=== PATIENT | male | born 2000 | race Caucasian/White ===

== ENCOUNTER 2021-12-30 18:41 | Inpatient (IN) | payer SELFPAY ==
--- NOTE | ~2021-12-30 | CT_ITS ---
EXAMINATION: CT ABDOMEN AND PELVIS WITH CONTRAST CLINICAL INFORMATION: Right abdominal pain COMPARISON: Radiograph 12/30/2021 TECHNIQUE: Multidetector volumetric images were obtained from the superior aspect of the liver through the pubic symphysis following administration 85 mL of Omnipaque 350 intravenous contrast. Sagittal and coronal reformatted images were obtained on the technologist's workstation. Oral contrast: No This CT examination was performed using dose optimization techniques as appropriate, variously including the following: *Automated exposure control *Adjustment of mA and/or kV according to patient size (this includes techniques or standardized protocols for targeted exams where dose is matched to indication/reason for exam; i.e. extremities or head) *Use of iterative reconstruction technique DLP: 381 mGy-cm FINDINGS: LUNG BASES: The visualized lung bases are unremarkable. LIVER, GALLBLADDER, AND BILIARY TREE: The liver is normal in size, shape, and attenuation. No focal hepatic lesion or biliary ductal dilatation is present. The gallbladder is unremarkable with no evidence of radiopaque gallstones, gallbladder wall thickening, or obvious pericholecystic inflammatory changes. PANCREAS: Unremarkable. SPLEEN: Unremarkable. ADRENAL GLANDS: Unremarkable. KIDNEYS AND URETERS: The kidneys are normal in size, shape, and attenuation. No hydronephrosis, hydroureter, or calculi seen. No perinephric stranding. BLADDER: Unremarkable. GASTROINTESTINAL TRACT: Normally distended stomach. Normal caliber small bowel. There is no obstruction. The appendix is abnormal. This is dilated to measure 1.7 cm. There is significant adjacent inflammation. In the region of the distal appendix there is extraluminal fluid, consistent with a perforation. No abscess formation seen at this time. The remainder of the colon appears unremarkable. ABDOMINAL WALL: No significant hernia is appreciated. LYMPH NODES: Normal. VASCULAR: Unremarkable. PELVIC VISCERA: The prostate and seminal vesicles are unremarkable. Small volume of pelvic free fluid. OSSEOUS STRUCTURES: Bilateral L5 pars defects with grade 1 anterolisthesis of L5 on S1. No acute abnormality. CT/CT abdomen pelvis w con IMPRESSION: Acute appendicitis with perforation. This critical result was discussed with Dr. Wyatt by telephone at 12/30/2021 11:04 PM and it was ascertained that the content and urgency of the report was understood at the time of direct communication. Fleischner guidelines were followed.
--- NOTE | ~2021-12-30 | XR_ITS ---
EXAMINATION: XR ABDOMEN KUB CLINICAL INDICATION: Abdomen pain. Constipation COMPARISON: None TECHNIQUE: Supine frontal view of the abdomen. FINDINGS: No suspicious calcification. No evidence of a mass or collection. There are some gas-filled loops of bowel. No significant distention. No ectopic gas. No pneumatosis or pneumoperitoneum demonstrated. Probable bone island proximal right femur. XR/XR KUB IMPRESSION: Nonobstructed gas pattern. No evidence of pneumoperitoneum. The amount of fecal residue appears within normal limits
[2021-12-30 18:59] VITALS: BP 117/73; PULSE 97; RESP 15; TEMP 37.1; O2SAT 98; BMI 23.7
[2021-12-30 19:40] LABS: MANUAL DIFF FLAG NO
[2021-12-30 19:41] LABS: Basophils Percent Auto 0.2 % (0-2); Hematocrit 44.7 % (42.0-52.0); Hemoglobin 15.3 g/dl (14.0-18.0); Imm Gran Abs Auto 0.11 X10*3/uL (0.00-0.03); Imm Gran Pct Auto 0.6 % (0.0-0.4); Lymphocytes Absolute Auto 0.6 X10*3/uL (1.2-4.9); Lymphocytes Percent Auto 3.1 % (20-40); Mean Corpuscular HGB Conc 34.2 g/dl (31.0-36.0); Mean Corpuscular Hemoglobin 30.1 pg (27.0-33.0); Mean Platelet Volume 8.9 fL (9.4-12.4); Monocytes Absolute Auto 1.2 X10*3/uL (0.1-1.2); Monocytes Percent Auto 6.1 % (2-11); Platelet Count 373 X10*3/uL (160-400); Red Blood Count 5.08 X10*6/uL (4.60-5.80); Red Cell Distribution Width 12.3 % (11.0-16.0); White Blood Count 18.9 X10*3/uL (4.8-10.8)
[2021-12-30 20:14] LABS: Alanine Aminotransferase 13 U/L (0-40); Albumin Level 4.8 g/dL (3.5-5.0); Alkaline Phosphatase 58 U/L (39-117); Anion Gap 13 (12-20); Aspartate Amino Transferase 14 U/L (5-37); Bilirubin Direct 0.5 mg/dL (0.0-0.5); Bilirubin Total 1.1 mg/dL (0.0-1.0); Blood Urea Nitrogen 12 mg/dL (9-16); Calcium 9.8 mg/dL (8.4-10.2); Carbon Dioxide 31 mmol/L (22-29); Chloride 97 mmol/L (96-108); Creatinine Clr Calc Pharmacy 109.6; Estimated Glomerular Filt Rate > 60; Glucose Random 185 mg/dL (60-115); Lipase 14 U/L (8-78); Potassium 3.9 mmol/L (3.3-5.1); Sodium 137 mmol/L (135-145); Total Protein 8.1 g/dL (6.5-8.0)
--- NOTE | 2021-12-30 21:44 | ED.ABDPAIN ---
HPI - Abdominal Pain General Chief Complaint: Abdominal Pain Stated Complaint: abdominal and groin pain Time Seen by Provider: 12/30/21 21:29 Source: patient Mode of arrival: wheelchair Limitations: no limitations History of Present Illness HPI narrative: Patient presents emergency department for evaluation of abdominal pain. He reports onset of mild abdominal pain yesterday evening, followed by multiple episodes of nausea and vomiting. He states that about 4-5 hours ago he felt his abdominal pain to become more intense and severe. Predominantly to the right lower quadrant radiating into the groin and his back. He does additionally report pain to the left side as well with his is not as severe. He reports no bowel movement over the past 2 days, thought he may have been constipated, trial of magnesium citrate as well as a laxative without any relief. He does have history of constipation. Denies fevers, chills chest pain, shortness of breath, dysuria, urinary frequency, abnormal penile discharge, testicular pain or scrotal swelling. Related Data Allergies Allergy/AdvReac Type Severity Reaction Status Date / Time sulfamethoxazole AdvReac Unknown Verified 12/30/21 19:05 [From Bactrim] trimethoprim [From Bactrim] AdvReac Unknown Verified 12/30/21 19:05 Review of Systems Review of Systems Constitutional : No Weight loss, No Fever, No Chills ENT/Mouth :? No sore throat, No Rhinorrhea Eyes: No Swelling, No Redness Cardiovascular : No Chest Pain, No SOB, No Edema Respiratory : No Cough, No Sputum, No Wheezing Gastrointestinal : Positive Nausea, Positive Vomiting, no Diarrhea, positive abdominal pain, No Hematochezia, No Melena Genitourinary : No Dysuria, No Urinary Frequency, No Hematuria, No Urgency? Musculoskeletal : No joint pain, No Myalgias, No Joint Swelling Skin : No Skin Lesions, No rash Neuro : No Weakness, No Numbness, No Dizziness, No Headache Psych : No Anxiety/Panic, No Depression Heme/Lymph: No Bruising, No Lymphadenopathy Endocrine : No Polyuria, No Polydipsia Yes all other systems are reviewed and are negative [facility] Past Medical History Attestation statement: The following information was validated with the patient. Source: old records reviewed Social History Social History Advance Directives: No Physical Exam ED Vital Signs: Vital Signs - 24 hr 12/30/21 18:59 12/30/21 23:02 12/30/21 22:00 Temperature 98.8 F 102 F H Pulse Rate 97 88 Respiratory Rate 15 16 16 Blood Pressure 117/73 132/74 Pulse Oximetry 98 97 Oxygen Delivery Method Room Air Room Air BMI result Body Mass Index 23.7 Vital signs have been reviewed as normal and appeared to be correct. Blood pressure normal.? Heart rate normal.? Respiration rate normal. Temperature normal.? Oxygen saturation normal. Appearance: Alert.?Oriented to person, place and time. No acute distress.?Normal affect. Eyes: Pupils equal, round and reactive to light.? ENT: Pharynx normal.?? Neck: Normal inspection.? Neck supple.?? CVS: Heart sounds normal. Normal heart rate and rhythm.? Pulses normal.?? Respiratory: No respiratory distress.? Lung sounds clear to auscultation bilaterally?? Abdomen: Firm, tenderness predominantly in the right lower quadrant, no rebound tenderness negative Rovsing sign, obturator sign, psoas sign. No CVA tenderness ? Skin: Skin warm and dry.? Normal skin color.? Normal skin turgor.?? Extremities: No lower extremity edema.? Neuro: Moves all extremities spontaneously. Sensation intact bilaterally. No motor deficits Ambulates with normal steady gait. Course Course Course Narrative: Patient is a 21-year-old male with a significant past medical history presenting to emergency department for evaluation of abdominal pain, predominantly right lower quadrant, episodes of nausea and vomiting. Has been able to tolerate water, but has not had anything to eat. Pain became severe for you this evening. At the time of my exam while at rest pain is currently 3/10, declines needing analgesics or antiemetics at this time. Labs reveal leukocytosis at 18.9, no anemia, CMP is overall unremarkable. Obtain CT of the abdomen to evaluate for intra-abdominal pathology Reevaluation(s) Reevaluation #1: Patient noted to be febrile 102, no tachycardia. Tylenol ordered at this time. Infection suspected at this time, CT of the abdomen reveals acute appendicitis with perforation, blood cultures and lactic acid ordered. Zosyn IV ordered. Consult placed to surgery Dr. Joseph Time: 23:09 Reevaluation #2: Discussed with patient plan of care for admission to hospital, plan for laparoscopic appendectomy in the morning with Dr. Joseph. Briefly discussed this procedure with him, patient is agreeable with plan of care. Time: 23:30 MDM - Abdominal Pain Medical Records Attestation: I reviewed the patient's medical records. Lab Data Attestation: I reviewed the patient's lab results. Result diagrams: 12/30/21 19:36 12/30/21 19:36 Labs: Lab Results 12/30/21 12/30/21 Range/Units 19:36 19:36 WBC 18.9 H (4.8-10.8) X10*3/uL RBC 5.08 (4.60-5.80) X10*6/uL Hgb 15.3 (14.0-18.0) g/dl Hct 44.7 (42.0-52.0) % MCV 88.0 (80.0-98.0) fL MCH 30.1 (27.0-33.0) pg MCHC 34.2 (31.0-36.0) g/dl RDW 12.3 (11.0-16.0) % Plt Count 373 (160-400) X10*3/uL MPV 8.9 L (9.4-12.4) fL Immature Gran % (Auto) 0.6 H (0.0-0.4) % Neut % (Auto) 90.0 H (45-73) % Lymph % (Auto) 3.1 L (20-40) % Mercer % (Auto) 6.1 (2-11) % Eos % (Auto) 0.0 (0-4) % Baso % (Auto) 0.2 (0-2) % Lymph # (Auto) 0.6 L (1.2-4.9) X10*3/uL Mercer # (Auto) 1.2 (0.1-1.2) X10*3/uL Eos # (Auto) 0.0 (0.0-0.4) X10*3/uL Baso # (Auto) 0.0 (0.0-0.2) X10*3/uL Abs Immat Gran (auto) 0.11 H (0.00-0.03) X10*3/uL Absolute Neuts (auto) 17.0 H (2.0-8.3) x10*3/uL Absolute Nucleated RBC 0.000 (0.0-0.012) X10*3/uL Nucleated RBC % (auto) 0.0 (0.0-0.2) /100WBC Sodium 137 (135-145) mmol/L Potassium 3.9 (3.3-5.1) mmol/L Chloride 97 (96-108) mmol/L Carbon Dioxide 31 H (22-29) mmol/L Anion Gap 13 (12-20) BUN 12 (9-16) mg/dL Creatinine 1.15 (0.5-1.4) mg/dL Estim Creat Clear Calc 109.6 Estimated GFR > 60 Random Glucose 185 H (60-115) mg/dL Calcium 9.8 (8.4-10.2) mg/dL Total Bilirubin 1.1 H (0.0-1.0) mg/dL Direct Bilirubin 0.5 (0.0-0.5) mg/dL AST 14 (5-37) U/L ALT 13 (0-40) U/L Alkaline Phosphatase 58 (39-117) U/L Total Protein 8.1 H (6.5-8.0) g/dL Albumin 4.8 (3.5-5.0) g/dL Lipase 14 (8-78) U/L Imaging Data KUB: Radiologist's impression: XR/XR KUB IMPRESSION: Nonobstructed gas pattern. No evidence of pneumoperitoneum. The amount of fecal residue appears within normal limits ? CT scan - abdomen: Radiologist's impression: CT/CT abdomen pelvis w con IMPRESSION: Acute appendicitis with perforation. Discharge Plan Discharge Clinical Impression: Acute perforated appendicitis Patient Disposition: Admitted As Inpatient
[2021-12-30 22:00] VITALS: RESP 16
--- NOTE | 2021-12-30 22:00 | PC.NURSE ---
Iv establish. Resting comfortably
[2021-12-30] MEDS: iohexoL 350 MG/ML 100 ML INFUS..BTL IV (22:27)
[2021-12-30 23:02] VITALS: BP 132/74; PULSE 88; RESP 16; TEMP 38.8; O2SAT 97
[2021-12-30] MEDS: Acetaminophen 325 MG TABLET 975 MG PO (23:35)
[2021-12-30] MEDS: Piperacillin Sodium/Tazobactam 4.5 GM in 0.9 % Sodium Chloride 100 ML IV (23:36)
[2021-12-30 23:46] VITALS: BP 131/66; PULSE 92; RESP 14; TEMP 38.1; O2SAT 95
[2021-12-30 23:50] LABS: Lactic Acid 1.5 mmol/L (0.5-2.0)
[2021-12-31] VITALS (17 sets, daily range): BP systolic 113–155; BP diastolic 61–91; PULSE 60–85; RESP 15–17; TEMP 36.4–37.3; O2SAT 92–97
[2021-12-31] MEDS: Dextrose 5 % and Lactated Ring 1,000 ML 125 ML IVCONT ×3 (00:26→15:21)
--- NOTE | 2021-12-31 01:03 | PC.NURSE ---
pt resting in bed sleeping, no distress
[2021-12-31 02:36] LABS: COVID-19 Test Negative (Negative)
[2021-12-31] MEDS: Piperacillin Sodium/Tazobactam 3.375 GM in 0.9 % Sodium Chloride 50 ML IV ×3 (06:16→18:10)
[2021-12-31 06:48] LABS: MANUAL DIFF FLAG NO
[2021-12-31 07:08] LABS: Basophils Percent Auto 0.2 % (0-2); Eosinophils Absolute Auto 0.1 X10*3/uL (0.0-0.4); Eosinophils Percent Auto 0.5 % (0-4); Hematocrit 42.9 % (42.0-52.0); Hemoglobin 14.7 g/dl (14.0-18.0); Imm Gran Abs Auto 0.14 X10*3/uL (0.00-0.03); Imm Gran Pct Auto 0.7 % (0.0-0.4); Lymphocytes Percent Auto 5.1 % (20-40); Mean Corpuscular HGB Conc 34.3 g/dl (31.0-36.0); Mean Corpuscular Hemoglobin 30.2 pg (27.0-33.0); Mean Corpuscular Volume 88.1 fL (80.0-98.0); Mean Platelet Volume 9.7 fL (9.4-12.4); Monocytes Absolute Auto 1.2 X10*3/uL (0.1-1.2); Monocytes Percent Auto 6.4 % (2-11); Neutrophils Absolute Auto 16.6 x10*3/uL (2.0-8.3); Neutrophils Percent Auto 87.1 % (45-73); Platelet Count 302 X10*3/uL (160-400); Red Blood Count 4.87 X10*6/uL (4.60-5.80); Red Cell Distribution Width 12.5 % (11.0-16.0); White Blood Count 19.1 X10*3/uL (4.8-10.8)
--- NOTE | 2021-12-31 07:15 | PC.NURSE ---
pt sister angie,
[2021-12-31 07:20] LABS: Anion Gap 13 (12-20); Blood Urea Nitrogen 11 mg/dL (9-16); Carbon Dioxide 28 mmol/L (22-29); Chloride 98 mmol/L (96-108); Creatinine Clr Calc Pharmacy 135.5; Estimated Glomerular Filt Rate > 60; Glucose Random 142 mg/dL (60-115); Potassium 4.2 mmol/L (3.3-5.1); Sodium 135 mmol/L (135-145)
[2021-12-31] MEDS: Acetaminophen 325 MG TABLET 650 MG PO (07:46)
--- NOTE | 2021-12-31 07:50 | PC.NURSE ---
Pt resting in stretcher. C/o headache. PRN tylenol given. Pt stating that abdominal pain is tolerable. aware to ask for meds if necessary. Pt educated on callbell use. Callbell and belongings within reach.
--- NOTE | 2021-12-31 07:50 | PM.HPGS ---
History of Present Illness History of Present Illness Date of Service: 12/31/21 Chief complaint: Acute appendicitis with perforation Narrative: Rico Melchor is a 21 year old male presenting with complaints of abdominal pain in the lower abdomen. The pain began in the epigastric region on Saturday and was associated with nausea and vomiting. He initially thought he was constipated. The pain seemed to progress and became more localized in the right lower quadrant and suprapubic region. He subsequently presented to the emergency department last evening for further evaluation. In the ED he was noted to be tender in the lower abdomen. WBC was markedly elevated. CT abdomen and pelvis revealed a dilated appendix with fluid surrounding the appendix suggestive of a possible perforation. He is admitted to the surgical service for further management. This morning he does report feeling somewhat improved but does have increased pain with movement. He denies anorexia but did have fever during the night. The pain is currently at 7/10. Review of Systems Review of Systems: Yes all other systems are reviewed and are negative Constitutional: Constitutional: Reports chills, Reports fever(s), Reports headache(s), Denies poor appetite and Denies weakness ENT: Reports headache(s) Cardiovascular: Cardiovascular: Denies chest pain, Denies irregular heart rhythm, Denies palpitations and Denies dyspnea Respiratory: Respiratory: Denies cough, Denies excessive phlegm production and Denies dyspnea Gastrointestinal: Gastrointestinal: Reports abdominal pain, Reports bloating, Denies change in bowel habits, Reports constipation, Denies heartburn, Denies diarrhea, Reports nausea and Reports vomiting Genitourinary: Genitourinary: Denies difficulty urinating and Denies urinary frequency Musculoskeletal: Musculoskeletal: Denies back pain, Denies muscle weakness and Denies numbness Integumentary/Breasts: Skin/Breast: Denies changing lesions and Denies unusual bruising Neurologic: Reports headache(s), Denies numbness, Denies paresthesias and Denies weakness Psychiatric: Psychiatric: Denies anxiety and Denies depression Endocrine: Endocrine: Denies palpitations Hematologic/Lymphatic: Hematologic/Lymphatic: Denies lymphadenopathy [facility] Social History Social History Advance Directives: No Meds Allergies Allergy/AdvReac Type Severity Reaction Status Date / Time sulfamethoxazole AdvReac Unknown Verified 12/30/21 19:05 [From Bactrim] trimethoprim [From Bactrim] AdvReac Unknown Verified 12/30/21 19:05 Active Medications: Current Medications Acetaminophen (Acetaminophen 325 Mg Tablet) 650 mg PO QID PRN PRN Reason: headache, temp > 101 Last Admin: 12/31/21 07:46 Dose: 650 mg Hydromorphone HCl (Hydromorphone Hcl 1 Mg/Ml Syringe) 0.5 mg IVPUSH Q3H PRN; Protocol PRN Reason: Pain, Severe (Pain Scale 7-10) Dextrose/Lactated Ringer's (D5lr) 1,000 mls @ 125 mls/hr IVCONT .Q8H [facility] Last Admin: 12/31/21 07:46 Dose: 125 mls/hr Piperacillin Sod/Tazobactam (Sod 3.375 gm/ Sodium Chloride) 50 mls @ 100 mls/hr IV Q6H [facility] Last Infusion: 12/31/21 07:48 Dose: Infused Ondansetron HCl (Ondansetron Hcl 4 Mg/2 Ml Vial) 4 mg IVPUSH QID PRN PRN Reason: Nausea Oxycodone HCl (Oxycodone Hcl Immed Release 5 Mg Tablet) 5 mg PO Q6H PRN PRN Reason: Pain, Moderate (Pain Scale 4-6 Sodium Chloride (0.9 % Sodium Chloride Flush 3 Ml Syringe) 3 ml IVFLUSH QSHIFT [facility] Last Admin: 12/31/21 07:50 Dose: Not Given Zolpidem Tartrate (Zolpidem Tartrate 5 Mg Tablet) 5 mg PO BEDTIME PRN PRN Reason: Insomnia Home Medications Medication Instructions Recorded Confirmed Last Taken Type No Known Home Meds 12/31/21 12/31/21 Unknown History Physical Exam Vital Signs: Vital Signs: Last Vital Signs Temp 99.1 F 12/31/21 07:29 Pulse 82 12/31/21 07:29 Resp 17 12/31/21 07:29 BP 116/71 12/31/21 07:29 Pulse Ox 95 12/31/21 07:29 O2 Del Method 12/31/21 07:29 BMI result Body Mass Index 23.7 Const: General: cooperative and no acute distress Nutritional Appearance: well nourished Orientation/consciousness: patient oriented x3 Limitations: no limitations HEENT: Head: Yes normocephalic and Yes atraumatic Ears: hearing grossly normal bilaterally Resp: Effort & Inspection: normal respiratory effort, no audible wheezes, no cough and no respiratory distress Cardio: Jugular venous distension: no JVD GI: Inspection: Yes normal to inspection Palpation (GI): Soft to palpation, Tenderness to palpation present (GI) in the LLQ, in the RLQ and suprapubicly, no guarding, not rigid and no masses Percussion: Yes normal to percussion Auscultation: normal bowel sounds Rectal Exam - Male: Yes deferred Skin: Other: Warm, dry, no rash Neuro: General: patient oriented x3 Extrem: General: Yes no clubbing, cyanosis or edema Results Results Labs: Short CBC 12/30/21 12/31/21 Range/Units 19:36 06:11 WBC 18.9 H 19.1 H (4.8-10.8) X10*3/uL Hgb 15.3 14.7 (14.0-18.0) g/dl Hct 44.7 42.9 (42.0-52.0) % Plt Count 373 302 (160-400) X10*3/uL BMP 12/30/21 12/31/21 19:36 06:11 Sodium 137 135 Potassium 3.9 4.2 Chloride 97 98 Carbon Dioxide 31 H 28 BUN 12 11 Creatinine 1.15 0.93 Calcium 9.8 9.0 D Liver Function 12/30/21 Range/Units 19:36 Total Bilirubin 1.1 H (0.0-1.0) mg/dL Direct Bilirubin 0.5 (0.0-0.5) mg/dL AST 14 (5-37) U/L ALT 13 (0-40) U/L Alkaline Phosphatase 58 (39-117) U/L Albumin 4.8 (3.5-5.0) g/dL Assessment and Plan (1) Acute perforated appendicitis: Status: Acute Plan 21-year-old male patient presenting with complaints of abdominal pain in the lower abdomen of 24 hours duration. [place] [address] confirms inflamed appendix suggestive of acute appendicitis possibly with perforation. I recommended a laparoscopic or possible open appendectomy. After discussion of the procedure, risks, and alternatives, he consents to the surgery. He has been added onto the operative schedule for today. Quality Stroke Does the patient have a stroke diagnosis?: No VTE Prior VTE?: No VTE Risk Level:: Surgical - moderate VTE Device Contraindication: N/A - Device Ordered VTE Drug Contraindication: Treatment Not Indicated Procedures Date of Service Date of Service: 12/31/21
--- NOTE | 2021-12-31 08:37 | MHC.CM.PN ---
FACE SHEET FAXED TO [employer] INDICATES NO INSURANCE
--- NOTE | 2021-12-31 08:53 | P.CONAN_ITS ---
[facility] Active Problems Active Problems: All Active Problems (Updated 12/30/21 @ 23:57 by Kelly Lee CNP) Acute perforated appendicitis (Acute) Past Medical History Functional capacity: independent ambulation Family History Family history of problems with anesthesia: No Social History Social History Advance Directives: No Meds Allergies Allergy/AdvReac Type Severity Reaction Status Date / Time sulfamethoxazole AdvReac Unknown Verified 12/30/21 19:05 [From Bactrim] trimethoprim [From Bactrim] AdvReac Unknown Verified 12/30/21 19:05 Active Medications: Current Medications Acetaminophen (Acetaminophen 325 Mg Tablet) 650 mg PO QID PRN PRN Reason: headache, temp > 101 Last Admin: 12/31/21 07:46 Dose: 650 mg Hydromorphone HCl (Hydromorphone Hcl 1 Mg/Ml Syringe) 0.5 mg IVPUSH Q3H PRN; Protocol PRN Reason: Pain, Severe (Pain Scale 7-10) Dextrose/Lactated Ringer's (D5lr) 1,000 mls @ 125 mls/hr IVCONT .Q8H [facility] Last Admin: 12/31/21 07:46 Dose: 125 mls/hr Piperacillin Sod/Tazobactam (Sod 3.375 gm/ Sodium Chloride) 50 mls @ 100 mls/hr IV Q6H [facility] Last Infusion: 12/31/21 07:48 Dose: Infused Ondansetron HCl (Ondansetron Hcl 4 Mg/2 Ml Vial) 4 mg IVPUSH QID PRN PRN Reason: Nausea Oxycodone HCl (Oxycodone Hcl Immed Release 5 Mg Tablet) 5 mg PO Q6H PRN PRN Reason: Pain, Moderate (Pain Scale 4-6 Sodium Chloride (0.9 % Sodium Chloride Flush 3 Ml Syringe) 3 ml IVFLUSH QSHIFT [facility] Last Admin: 12/31/21 07:50 Dose: Not Given Zolpidem Tartrate (Zolpidem Tartrate 5 Mg Tablet) 5 mg PO BEDTIME PRN PRN Reason: Insomnia Home Medications Medication Instructions Recorded Confirmed Last Taken Type No Known Home Meds 12/31/21 12/31/21 Unknown History Exam Exam Date and Time: December 31, 2021 0853 Height,Weight and Vital Signs: Height 6 ft Weight 79.379 kg Last Vital Signs Temp 99.1 F 12/31/21 07:29 Pulse 82 12/31/21 07:29 Resp 17 12/31/21 07:29 BP 116/71 12/31/21 07:29 Pulse Ox 95 12/31/21 07:29 O2 Del Method 12/31/21 07:29 Pertinent Lab Results Pertinent Lab Results: Laboratory Tests 12/30/21 12/30/21 12/30/21 19:36 19:36 23:32 WBC 18.9 H RBC 5.08 Hgb 15.3 Hct 44.7 MCV 88.0 MCH 30.1 MCHC 34.2 RDW 12.3 Plt Count 373 MPV 8.9 L Immature Gran % (Auto) 0.6 H Neut % (Auto) 90.0 H Lymph % (Auto) 3.1 L Cole % (Auto) 6.1 Eos % (Auto) 0.0 Baso % (Auto) 0.2 Lymph # (Auto) 0.6 L Cole # (Auto) 1.2 Eos # (Auto) 0.0 Baso # (Auto) 0.0 Abs Immat Gran (auto) 0.11 H Absolute Neuts (auto) 17.0 H Absolute Nucleated RBC 0.000 Nucleated RBC % (auto) 0.0 Sodium 137 Potassium 3.9 Chloride 97 Carbon Dioxide 31 H Anion Gap 13 BUN 12 Creatinine 1.15 Estim Creat Clear Calc 109.6 Estimated GFR > 60 Random Glucose 185 H Lactic Acid 1.5 Calcium 9.8 Total Bilirubin 1.1 H Direct Bilirubin 0.5 AST 14 ALT 13 Alkaline Phosphatase 58 Total Protein 8.1 H Albumin 4.8 Lipase 14 COVID-19 ([facility]) COVID-19 Clin Com 12/31/21 12/31/21 12/31/21 02:15 06:11 06:11 WBC 19.1 H RBC 4.87 Hgb 14.7 Hct 42.9 MCV 88.1 MCH 30.2 MCHC 34.3 RDW 12.5 Plt Count 302 MPV 9.7 Immature Gran % (Auto) 0.7 H Neut % (Auto) 87.1 H Lymph % (Auto) 5.1 L Cole % (Auto) 6.4 Eos % (Auto) 0.5 Baso % (Auto) 0.2 Lymph # (Auto) 1.0 L Cole # (Auto) 1.2 Eos # (Auto) 0.1 Baso # (Auto) 0.0 Abs Immat Gran (auto) 0.14 H Absolute Neuts (auto) 16.6 H Absolute Nucleated RBC 0.000 Nucleated RBC % (auto) 0.0 Sodium 135 Potassium 4.2 Chloride 98 Carbon Dioxide 28 Anion Gap 13 BUN 11 Creatinine 0.93 Estim Creat Clear Calc 135.5 Estimated GFR > 60 Random Glucose 142 H Lactic Acid Calcium 9.0 D Total Bilirubin Direct Bilirubin AST ALT Alkaline Phosphatase Total Protein Albumin Lipase COVID-19 ([facility]) Negative COVID-19 Clin Com See Note Airway Mallampati Class: II TM Dist: >3cm Heart: RRR Lungs: CYA Assessment and Plan Final Anesthetic Review Family History of Problems with Anesthesia: No ASA Class: I and Emergency Final Preanesthetic Review: Meds/Allgs Chart Reviewed, Consent Obtained/Reviewed and Anes Risks/Benef Reviewed Patient Risk: Low Procedure Risk: Low Anesthetic Plan Anesthetic Plan: GA Disposition: Standard PACU
--- NOTE | 2021-12-31 11:24 | P.OP_ITS ---
Operative Note Operative Note Date of Service: 12/31/21 Narrative: Preoperative diagnosis: Acute appendicitis, with perforation Postoperative diagnosis: Same Procedure: Laparoscopic appendectomy Surgeon: Darwin Joseph MD Cold Reduction Roller: No physician Anesthesia: General endotracheal Indications for procedure: 21-year-old male patient presenting with pain in the epigastrium radiating down to the right lower quadrant left lower quadrant of 24 hours duration. Patient presented to the emergency department was noted to have an elevated WBC. CT of the abdomen and pelvis was suggestive of a perforated appendicitis. He presents today for laparoscopic or possible open appendectomy. Operative findings: Patient found to have a retrocecal appendix extending up along the right colon up to the level of the hepatic flexure was small amount of turbid fluid surrounding suggestive of a early perforation. Specimen: Appendix Estimated blood loss: 15 mL Complications: None Procedure details: Patient was brought to the OR and placed in a supine position. After administering general anesthesia the patient's abdomen was prepped with ChloraPrep and draped in a sterile fashion. A surgical time-out was called and consent confirmed. Patient received preoperative antibiotics and Venodyne boots were in place. Local anesthesia consisting of 0.75% Sensorcaine with epinephrine was infiltrated in periumbilical region. A 5 mm incision was made below the umbilicus and carried down through subcutaneous tissue. A Veress needle was then inserted while elevating abdominal cavity with towel clips. After a positive drop test the abdomen was insufflated to a pressure of 15 mm of mercury. The Veress needle was removed and a 5 mm trocar inserted. The camera was then inserted in the abdomen explored. A 2nd 5 mm trocars placed in the lower midline. A 12 mm trocar was then placed in the left lower quadrant. The patient was then placed in a Trendelenburg position and rotated to the left. The cecum was identified along with the terminal ileum. The appendix was not a ny immediately evident therefore the cecum and right colon was mobilized along the white line, and a structure suggestive of the base of the appendix was identified. Was densely adherent to the cecum and right colon. Using LigaSure and gentle dissection the appendix was dissected free from the surrounding cecum. The tip of the appendix reach the hepatic flexure just below the gallbladder. With this was completely mobilized the mesentery was divided using LigaSure. The appendix was then divided using Endo-TRUPTI with a purple 30 mm stapler. The appendix was then placed in Endo-Catch bag and brought out through the left lower quadrant incision. The abdomen was then irrigated with saline solution and suctioned dry. Wounds were checked for hemostasis. CO2 was then evacuated from the abdominal cavity and all trocars removed. Fascia was closed in the left lower quadrant incision using a [id number] 0 Polysorb suture. Skin was closed at all incisions using a subcuticular 4-0 Poly sorb suture. Steri-Strips 2 x 2 gauze and Tegaderm were then applied. The patient tolerated the procedure well. Sponge, instrument, needle counts reported as correct. The patient was transferred to PACU in stable condition.
[2021-12-31] MEDS: fentaNYL citrate/PF 100 MCG/2 ML VIAL 25 MCG IVPUSH ×2 (11:50→12:00)
--- NOTE | 2021-12-31 15:43 | PC.NURSE ---
New admit from PACU, S/P Lap appendectomy. Alert and oriented. Denies pain. VSS, afebrile, no acute resp. distress noted. ABD dressing CDI. IV antibiotic given, no adverse reaction noted. will continue to monitor and treat per plan of care.
[2021-12-31] MEDS: HYDROmorphone HCl 1 MG/ML SYRINGE 0.5 MG IVPUSH (18:10)
[2021-12-31] MEDS: 0.9 % Sodium Chloride Flush 3 ML SYRINGE IVFLUSH (18:10)
[2022-01-01] MEDS: Piperacillin Sodium/Tazobactam 3.375 GM in 0.9 % Sodium Chloride 50 ML IV ×2 (00:19→06:13)
[2022-01-01] MEDS: HYDROmorphone HCl 1 MG/ML SYRINGE 0.5 MG IVPUSH (01:11)
[2022-01-01] MEDS: Dextrose 5 % and Lactated Ring 1,000 ML 125 ML IVCONT ×2 (01:14→09:31)
[2022-01-01 06:38] LABS: Hematocrit 40.3 % (42.0-52.0); Hemoglobin 13.6 g/dl (14.0-18.0); Mean Corpuscular HGB Conc 33.7 g/dl (31.0-36.0); Mean Corpuscular Hemoglobin 30.2 pg (27.0-33.0); Mean Corpuscular Volume 89.6 fL (80.0-98.0); Mean Platelet Volume 9.9 fL (9.4-12.4); Platelet Count 298 X10*3/uL (160-400); Red Cell Distribution Width 12.6 % (11.0-16.0); White Blood Count 15.1 X10*3/uL (4.8-10.8)
[2022-01-01 07:45] VITALS: BP 121/59; PULSE 99; RESP 18; TEMP 36.8; O2SAT 99
--- NOTE | 2022-01-01 09:16 | HO.POSTANES ---
Post Anesthesia Evaluation Post Anesthesia Evaluation Vital Signs: Vital Signs Temp Pulse Resp BP Pulse Ox O2 Del Method 01/01/22 07:45 98.2 F 99 18 121/59 L 99 Room Air 12/31/21 23:18 98.2 F 83 17 140/69 H 96 Room Air Anesthesia: General Endotracheal-GETA Mental Status: Awake Pain Control: Satisfactory Nausea/Vomiting: None Hydration: Adequate Anesthesia-Related Issues: No Anes. Related Issues
--- NOTE | 2022-01-01 09:37 | PM.DS ---
DS: Providers Provider Date of Service: 01/01/22 Date of admission: 12/30/21 23:28 Primary care physician: Nonstaff Physician DS: Diagnosis Discharge Diagnosis (1) Acute perforated appendicitis: Status: Acute DS: Summary Time Spent with Patient Time attestation: Total time spent providing and/or coordinating discharge services: Discharge coordination time: Less than 30 minutes Quality: Safe Use of Opioids Does Pt have an Active Cancer Diagnosis on the Problem List?: No Quality: Stroke Does the patient have a stroke diagnosis?: No Physical Exam Vital Signs: Vital Signs: Last Vital Signs Temp 98.2 F 01/01/22 07:45 Pulse 99 01/01/22 07:45 Resp 18 01/01/22 07:45 BP 121/59 L 01/01/22 07:45 Pulse Ox 99 01/01/22 07:45 O2 Del Method 01/01/22 07:45 O2 Flow Rate 2 12/31/21 12:08 BMI result Body Mass Index 23.7 DS: Data Data Completed and Pending Pending studies at discharge: Pending at discharge 12/31/21 11:05 Surgical [PTH] Routine Labs on day of discharge: Laboratory Results - last 24 hr 01/01/22 05:39 WBC 15.1 H RBC 4.50 L Hgb 13.6 L Hct 40.3 L MCV 89.6 MCH 30.2 MCHC 33.7 RDW 12.6 Plt Count 298 MPV 9.9 Absolute Nucleated RBC 0.000 Nucleated RBC % (auto) 0.0 Preliminary micro results at discharge 12/30/21 23:31 Blood Culture - Preliminary Blood - Venous No growth after 24 hours. 12/30/21 23:31 Blood Culture - Preliminary Blood - Venous No growth after 24 hours. Discharge Plan Discharge Patient Disposition: Home, Self-Care Discharge Diagnosis: acute perforated appendicitis s/p laparoscopic appendectomy Referrals: Physician,Nonstaff [Primary Care Provider] - 1 Week Discharge Medications: No Action No Known Home Meds Activity on Discharge: No heavy lifting Stand Alone Forms: Patient Portal Discharge page Health Concerns: acute perforated appendicitis Plan of Treatment: If the area of the incision is tender, you may apply an ice pack for short intervals. (No more than 20 minutes on, followed by at least 20 minutes off). Do not apply heat. Do not use creams, lotions, or topical antibiotics unless instructed to do so by your surgeon. OK to shower, Remove any clear dressings 3 days following your procedure. You have steri-strips (small white cloth strips) covering your incision- these will fall off ~1 week. No heavy lifting (>10 lbs) or strenuous activity! Follow up in office with Dr. Joseph in 1-2 weeks. ([phone]) Call your doctor if: - Your temperature exceeds 101.5F - You experience excessive pain or swelling - You have an unexpected reaction to medication - You have excessive bleeding - You experience continued vomiting/nausea - Your incision begins to separate - Your incision shows signs of infection such as increased redness, swelling, excessive pain, drainage (light blood or clear fluid is normal) or heat Assessment: s/p laparoscopic appendectomy for acute perforated appendicitis
--- NOTE | 2022-01-01 09:42 | P.PNGS_ITS ---
Subjective Subjective Date of Service: 01/01/22 Interval history: Patient feels improved with decreased abdominal pain. He was able to move his bowels last night and this morning. He tolerated a regular diet without nausea or vomiting. Physical Exam Vital Signs: Vital Signs: Last Vital Signs Temp 98.2 F 01/01/22 07:45 Pulse 99 01/01/22 07:45 Resp 18 01/01/22 07:45 BP 121/59 L 01/01/22 07:45 Pulse Ox 99 01/01/22 07:45 O2 Del Method 01/01/22 07:45 O2 Flow Rate 2 12/31/21 12:08 BMI result Body Mass Index 23.7 Const: General: healthy appearing and no acute distress Nutritional Appearance: well nourished Orientation/consciousness: patient oriented x3 Limitations: no limitations HEENT: Head: Yes normocephalic and Yes atraumatic Resp: Effort & Inspection: normal respiratory effort, no audible wheezes, no cough and no respiratory distress GI: Other: Incisions clean, dry, and intact Inspection: Yes normal to inspection Palpation (GI): Soft to palpation Neuro: General: patient oriented x3 Extrem: General: No edema Objective Data Active Medications Acetaminophen (Acetaminophen 325 Mg Tablet) 650 mg PO QID PRN PRN Reason: headache, temp > 101 Last Admin: 12/31/21 07:46 Dose: 650 mg Documented By: VALENTINE Fentanyl (Fentanyl Citrate/Pf 100 Mcg/2 Ml Vial) 25 mcg IVPUSH Q5M PRN; Protocol PRN Reason: Pain, Moderate (Pain Scale 4-6 Last Admin: 12/31/21 12:00 Dose: 25 mcg Documented By: HARRY Hydromorphone HCl (Hydromorphone Hcl 1 Mg/Ml Syringe) 0.5 mg IVPUSH Q3H PRN; Protocol PRN Reason: Pain, Severe (Pain Scale 7-10) Last Admin: 01/01/22 01:11 Dose: 0.5 mg Documented By: GAUDENCIO Dextrose/Lactated Ringer's (D5lr) 1,000 mls @ 125 mls/hr IVCONT .Q8H JEREMIAH Last Admin: 01/01/22 09:31 Dose: 125 mls/hr Documented By: ORION Piperacillin Sod/Tazobactam (Sod 3.375 gm/ Sodium Chloride) 50 mls @ 100 mls/hr IV Q6H [facility] Last Infusion: 01/01/22 06:52 Dose: 0 mls/hr Documented By: GAUDENCIO Ondansetron HCl (Ondansetron Hcl 4 Mg/2 Ml Vial) 4 mg IVPUSH QID PRN PRN Reason: Nausea Oxycodone HCl (Oxycodone Hcl Immed Release 5 Mg Tablet) 5 mg PO Q6H PRN PRN Reason: Pain, Moderate (Pain Scale 4-6 Sodium Chloride (0.9 % Sodium Chloride Flush 3 Ml Syringe) 3 ml IVFLUSH QSHIFT [facility] Last Admin: 01/01/22 09:28 Dose: Not Given Documented By: ORION Non-Admin Reason: IV Running Zolpidem Tartrate (Zolpidem Tartrate 5 Mg Tablet) 5 mg PO BEDTIME PRN PRN Reason: Insomnia Labs CBC & Chem 7: 01/01/22 05:39 12/31/21 06:11 Labs: Laboratory Results - last 24 hr 01/01/22 05:39 MCV 89.6 MCH 30.2 MCHC 33.7 RDW 12.6 Plt Count 298 MPV 9.9 Absolute Nucleated RBC 0.000 Nucleated RBC % (auto) 0.0 Microbiology Microbiology Results: Microbiology 12/30/21 23:31 Blood Culture - Preliminary Blood - Venous No growth after 24 hours. 12/30/21 23:31 Blood Culture - Preliminary Blood - Venous No growth after 24 hours. Procedures Date of Service Date of Service: 01/01/22 Progress Note: A&P Assessment and plan (1) Acute perforated appendicitis: Status: Acute Plan 21-year-old male patient status post laparoscopic appendectomy for acute appendicitis perforation. He tolerated the procedure well and his incisions are clean and intact. He remained hemodynamically stable. He is tolerating a regular diet without nausea or vomiting. WBC has improved to 15. will discharge patient to home today with follow-up in the office in approximately week. He will begin a prescription for Augmentin the next 10 days. He should follow up fever, chills, nausea or Vomiting. Time Spent With Patient Time: Total time spent is greater than 50% in coordination of care (as documented) at patient's floor/unit and/or counseling patient: No Severe Sepsis: No Severe Sepsis Quality Stroke Does the patient have a stroke diagnosis?: No VTE Prior VTE?: No VTE Risk Level:: Surgical - moderate VTE Device Contraindication: N/A - Device Ordered VTE Drug Contraindication: Treatment Not Indicated
--- NOTE | 2022-01-01 09:56 | PM.DS ---
DS: Providers Provider Date of Service: 01/01/22 Date of admission: 12/30/21 23:28 Primary care physician: Nonstaff Physician DS: Diagnosis Discharge Diagnosis (1) Acute perforated appendicitis: Status: Acute DS: Summary Hospital Course Hospital Course: Pt is a 21 year old male who presented to the ED on 12/31/2021 complaining of abdominal pain x 2 days. In the ED he was noted to be tender in the lower abdomen.? WBC was markedly elevated.? CT abdomen and pelvis revealed a dilated appendix with fluid surrounding the appendix suggestive of a possible perforation.? He was admitted to the surgical service and consented for surgery. He underwent laparoscopic appendectomy and was found to have a dilated appendix with likely early perforation. Pt tolerated the procedure well. Postoperatively he continued on IV Zosyn. His diet was advanced which he tolerated. On POD1 his WBC decreased from 19K to 15K. Pt was able to be discharged home on POD1 ambulatory, tolerating a regular diet, and with pain controlled on PO meds. He will continue PO Augmentin x 10 days. Time Spent with Patient Time attestation: Total time spent providing and/or coordinating discharge services: Discharge coordination time: Less than 30 minutes Quality: Safe Use of Opioids Does Pt have an Active Cancer Diagnosis on the Problem List?: No Quality: Stroke Does the patient have a stroke diagnosis?: No Physical Exam Vital Signs: Vital Signs: Last Vital Signs Temp 98.2 F 01/01/22 07:45 Pulse 99 01/01/22 07:45 Resp 18 01/01/22 07:45 BP 121/59 L 01/01/22 07:45 Pulse Ox 99 01/01/22 07:45 O2 Del Method 01/01/22 07:45 O2 Flow Rate 2 12/31/21 12:08 BMI result Body Mass Index 23.7 Const: General: cooperative, comfortable and no acute distress Orientation/consciousness: patient oriented x3 Resp: Effort & Inspection: normal respiratory effort GI: Other: soft, appropriate incisional tenderness, dressings C/D/I Neuro: General: patient oriented x3 DS: Data Data Completed and Pending Pending studies at discharge: Pending at discharge 12/31/21 11:05 Surgical [PTH] Routine Labs on day of discharge: Laboratory Results - last 24 hr 01/01/22 05:39 WBC 15.1 H RBC 4.50 L Hgb 13.6 L Hct 40.3 L MCV 89.6 MCH 30.2 MCHC 33.7 RDW 12.6 Plt Count 298 MPV 9.9 Absolute Nucleated RBC 0.000 Nucleated RBC % (auto) 0.0 Preliminary micro results at discharge 12/30/21 23:31 Blood Culture - Preliminary Blood - Venous No growth after 24 hours. 12/30/21 23:31 Blood Culture - Preliminary Blood - Venous No growth after 24 hours. Discharge Plan Discharge Patient Disposition: Home, Self-Care Discharge Diagnosis: acute perforated appendicitis s/p laparoscopic appendectomy Referrals: Physician,Nonstaff [Primary Care Provider] - 1 Week Discharge Medications: New oxycodone 5 mg tablet 5 mg PO Q6H PRN (Reason: pain (scale score 4-6)) Qty: 12 0RF Rx Instructions: Partial Fill upon patient request. amoxicillin-pot clavulanate 875-125 mg tablet 1 tab PO BID 10 Days Qty: 20 0RF Discharge Orders: Discharge Order (Routine); Ordered 01/01/22 Ordered By: Lilibeth Valdez Diet: Advance to usual diet Activity on Discharge: No heavy lifting Stand Alone Forms: Patient Portal Discharge page Care Plan Goals: resolution of appendicitis Health Concerns: acute perforated appendicitis Plan of Treatment: If the area of the incision is tender, you may apply an ice pack for short intervals. (No more than 20 minutes on, followed by at least 20 minutes off). Do not apply heat. Do not use creams, lotions, or topical antibiotics unless instructed to do so by your surgeon. OK to shower, Remove any clear dressings 3 days following your procedure. You have steri-strips (small white cloth strips) covering your incision- these will fall off ~1 week. No heavy lifting (>10 lbs) or strenuous activity! Follow up in office with Dr. Joseph in 1-2 weeks. ([phone]) Call your doctor if: - Your temperature exceeds 101.5F - You experience excessive pain or swelling - You have an unexpected reaction to medication - You have excessive bleeding - You experience continued vomiting/nausea - Your incision begins to separate - Your incision shows signs of infection such as increased redness, swelling, excessive pain, drainage (light blood or clear fluid is normal) or heat Assessment: s/p laparoscopic appendectomy for acute perforated appendicitis
[2022-01-01 11:32] VITALS: BP 138/64; PULSE 80; RESP 18; TEMP 36.7; O2SAT 100
[2022-01-01 11:56] VITALS: O2SAT 99
--- NOTE | 2022-01-01 12:03 | MHC.CM.PN ---
PT REPORTS HE LIVES AT HOME WITH HIS FAMILY AND IS INDEPENDENT WITH CARE PT DENIES USE OF DME OR HAVING ANY SERVICES. PT REPORTS HE DOES NOT HAVE HEALTH INSURANCE, HE IS AWARE A REFERRAL WAS SENT TO [facility]. HE REPORTS HE WAS SEEING DR NG IN [place] FOR PRIMARY CARE BUT HAS NOT BEEN THERE FOR SOME TIME. PT DOES NOT HAVE A HCP, HE DECLINES TO COMPLETE ONE TODAY BUT REQUESTS INFO AND DOCUMENT (PROVIDED) PT WILL DC HOME TODAY WITH NO SERVICES SISTER TO TRANSPORT
== END 2022-01-01 13:00 | disposition home or self-care (01) | DRG 340 ==
LOC: HO.ED 22:00 → HO.EDOVER 23:36 → HO.S3 12-31 08:25
PROVIDERS: Nurse Practitioner Family; Admitting Provider Surgery; Emergency Provider Emergency Medicine; Visit Provider Surgery
PROC: 0DTJ4ZZ Resection of Appendix, Percutaneous Endoscopic Approach (ICD-10-PCS; CPT 44970; principal; 2021-12-31 09:00)
DX: K35.32 Acute appendicitis with perforation, localized peritonitis, and gangrene, without abscess (principal); Z88.2 Allergy status to sulfonamides; Z20.822 Contact with and (suspected) exposure to COVID-19
CPT/HCPCS: 36415; 74018; 74177; 80048; 80053; 82248; 83605; 83690; 85025; 85027; 87040; 87635; 88304; 96365; 99285; J1100; J1170; J2250; J2405; J2543; J3010; Q9967